=== PATIENT | female | born 1955 | race Caucasian/White ===

== ENCOUNTER 2018-05-01 16:36 | Emergency (ER) | payer MEDICARE, MEDICAID ==
[~2018-05-01] VITALS: Ht 157.5 cm; Wt 68.0 kg
--- NOTE | 2018-05-01 16:58 | Emergency Room Report ---
History of Present Illness General Chief Complaint: Laceration Source: Patient Present Illness HPI 63-year-old female patient presents ER complaining of laceration on left index finger. 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 Bleeding controlled with gauze wrapped at home. Reports has not had a tetanus vaccination. Denies loss of sensation or loss range of motion. Reports she is right-hand dominant. Denies other acute symptoms. Allergies: Coded Allergies: No Known Allergies (Unverified , 05/01/18) Patient History Past Medical History: see triage record Reviewed Nursing Documentation: PMH: Agreed; PSxH: Agreed Nursing Documentation-PMH Past Medical History: No Stated History Review of Systems All Other Systems: negative except mentioned in HPI Physical Exam Vital Signs Date Time Temp Pulse Resp B/P (MAP) Pulse Ox O2 Delivery O2 Flow Rate FiO2 05/01/18 16:42 98.3 94 18 151/79 97 Room Air 98.2 Sp02 EP Interpretation: reviewed, normal General Appearance: well appearing, no apparent distress, alert, GCS 15, non- toxic Head: normocephalic, atraumatic Neck: full range of motion Respiratory: lungs clear, normal breath sounds, no rhonchi, no respiratory distress, no accessory muscle use, no wheezing, speaking full sentences Cardiovascular #1: regular rate, rhythm, no edema Cardiovascular #2: 2+ radial (R), 2+ radial (L) Musculoskeletal: back normal, digits/nails normal, gait/station normal, normal range of motion, other, tender - Left index finger distal phalanx Neurologic: alert, oriented x3, responsive, motor strength/tone normal, sensory intact Psychiatric: mood/affect normal Skin: laceration - Left index finger, palmar side, distal phalanx: U shaped laceration, 1 cm large, bleeding, superficial; small cut distal to laceration Procedures Laceration/Wound Repair Laceration/Wound Repair : Consent: Verbal Wound Location: upper extremity - Left index finger Wound's Depth, Shape: superficial Wound Length (cm): 1 Wound Explored: contaminated Irrigated w/ Saline (ccs): 20 Betadine Prep?: Yes Volume Anesthetic (ccs): 2 Wound Debrided: extensive Wound Repaired With: sutures Suture Size/Type: 5:0, proline Number of Sutures: 2 Sterile Dressing Applied?: Yes Splint Applied?: No Sling Applied?: No Patient Tolerated: Well Complications: None Medical Decision Making PA Attestation Dr. Coughlin is my supervising Physician whom patient management has been discussed with. Diagnostic Impression: Primary Impression: Laceration ER Course Pt presents to ED c/o laceration on left index finger. DDX considered but are not limited to laceration, abrasion, contusion, cellulitis. VITAL SIGNS are WNL, patient is afebrile ED INTERVENTIONS: TDAP and pain medication provided. CURES reviewed. full range of motion, sensation intact to light touch, patient does not require imaging at this time, low suspicion for fracture or tendon involvement. Wound was cleaned and irrigated using normal saline. wound explored, no foreign body noted. Digital block using Lidocaine 1%. Laceration repaired. 2 sutures placed. wound edges approximated well. Wound cleaned and covered using sterile dressing, Xeroform and Bacitracin. Patient reports understanding and agreement to treatment plan. Keep wound clean and dry. DISCHARGE: Rx provided for Keflex Rx provided for Ibuprofen At this time pt is stable for d/c to home. Patient resting comfortably, in no acute distress, nontoxic appearing, talking without difficulty. Will provide with patient care instructions and any necessary prescriptions. Patient to take medication as instructed. Care plan and follow-up instructions provided. Work note provided to patient. Patient questions asked and answered. Patient instructed to follow-up with primary care provider in 1-3 days for wound check and 7-10 days for removal of sutures ER precautions given. Patient instructed to return to ER immediately for any new or worsening of symptoms. - Please note that this Emergency Department Report was dictated using [email or web address] technology software, occasionally this can lead to erroneous entry secondary to interpretation by the dictation equipment. Last Vital Signs Date Time Temp Pulse Resp B/P (MAP) Pulse Ox O2 Delivery O2 Flow Rate FiO2 05/01/18 16:42 98.3 94 18 151/79 97 Room Air 98.2 Disposition: HOME, SELF-CARE Condition: Stable Scripts Acetaminophen* (TYLENOL EXTRA STRENGTH*) 500 Mg Tablet 500 MG ORAL Q8H PRN for Prn Headache/Temp > 101, #30 TAB 0 Refills Prov: Rachid Browne.Lilia 05/01/18 Cephalexin* (KEFLEX*) 500 Mg Capsule 500 MG ORAL EVERY 12 HOURS, #14 CAP 0 Refills Prov: Rachid Browne 05/01/18 Patient Instructions: Laceration Care, Adult Additional Instructions: Patient instructed to follow-up with primary care provider in 1-3 days for wound check and 7-10 days for removal of sutures. Take medications as directed. Keep wound clean and dry. Patient questions asked and answered. ER precautions given, patient instructed to return to ER immediately for any new or worsening of symptoms. Rachid Browne May 01, 2018 16:58
[2018-05-01] MEDS ORDERED: Lidocaine 1% MPF 10mg/ml 5ml IM ONE (17:00)
[2018-05-01] MEDS ORDERED: Norco 5mg/325mg tab ORAL ONE (17:00)
[2018-05-01] MEDS ORDERED: Tetanus/Diptheria/Pertussis Vaccine 0.5ml Syr IM ONE (17:00)
[2018-05-01 17:15] VITALS: BP 151/79
[2018-05-01] MEDS ORDERED: TYLENOL EXTRA500 MG ORAL (18:38)
[2018-05-01] MEDS ORDERED: CEPHALEXIN500 MG ORAL (18:38)
[2018-05-01 18:40] VITALS: BP 143/82
[2018-05-01] MEDS ORDERED: Bacitracin Oint UD TOPIC ONE (18:45)
== END 2018-05-01 18:42 | disposition home or self-care (01) ==
LOC: EMR 18:27
DX: S61.211A Laceration without foreign body of left index finger without damage to nail, initial encounter (principal); W29.8XXA Contact with other powered hand tools and household machinery, initial encounter; Y92.009 Unspecified place in unspecified non-institutional (private) residence as the place of occurrence of the external cause; Z23 Encounter for immunization
CPT/HCPCS: 90471; 90715; 96372; 99282

== ENCOUNTER 2018-06-08 23:26 | Emergency (ER) | payer MEDICARE, MEDICAID ==
[~2018-06-08] VITALS: Ht 157.5 cm; Wt 68.0 kg
[~2018-06-08 23:26] MED LIST: CEPHALEXIN500 MG ORAL; TYLENOL EXTRA500 MG ORAL
[2018-06-08] MEDS ORDERED: NKM (23:36)
[2018-06-08 23:45] VITALS: BP 105/56
[2018-06-08] MEDS ORDERED: Norco 5mg/325mg tab ONE (23:53)
[2018-06-09] MEDS ORDERED: Norco 5mg/325mg tab ORAL ONE
--- NOTE | 2018-06-09 00:07 | Emergency Room Report ---
History of Present Illness General Chief Complaint: Upper Extremity Injury Source: Patient Present Illness HPI Is a 63-year-old female who is right-hand dominant. 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 She slipped and fell on outstretched hand. She presents with chief complaint of right wrist pain. No other injury. Did not pass out. Pain is 9 out of 10. Worse with movement. Localized to the distal radius. No elbow pain. No shoulder pain. Worse with movement. Better with rest. Allergies: Coded Allergies: No Known Allergies (Unverified , 05/01/18) Patient History Past Medical History: see triage record, old chart reviewed, asthma Past Surgical History: other Pertinent Family History: none Social History: Denies: smoking Now: No Immunizations: other Reviewed Nursing Documentation: PMH: Agreed; PSxH: Agreed Nursing Documentation-PMH Past Medical History: No History, Except For Hx Asthma: Yes Review of Systems Eye: Denies: eye pain, blurred vision ENT: Denies: ear pain, nose congestion, throat swelling Respiratory: Denies: cough, shortness of breath Cardiovascular: Denies: chest pain, palpitations Gastrointestinal: Denies: abdominal pain, diarrhea, nausea, vomiting Musculoskeletal: Reports: joint pain; Denies: back pain Skin: Denies: rash Neurological: Denies: headache, numbness Endocrine: Denies: increased thirst, increased urine Hematologic/Lymphatic: Denies: easy bruising All Other Systems: negative except mentioned in HPI Physical Exam Vital Signs Date Time Temp Pulse Resp B/P (MAP) Pulse Ox O2 Delivery O2 Flow Rate FiO2 06/08/18 23:33 97.7 81 18 85/60 96 Room Air 97.7 vitals for low blood pressure. Repeat BP normal w/o intervention Sp02 EP Interpretation: reviewed, normal General Appearance: well appearing, no apparent distress, alert Head: normocephalic, atraumatic Eyes: bilateral eye PERRL, bilateral eye EOMI ENT: hearing grossly normal, normal pharynx Neck: full range of motion, supple, no meningismus Respiratory: chest non-tender, lungs clear, normal breath sounds Cardiovascular #1: regular rate, rhythm, no murmur Gastrointestinal: normal bowel sounds, non tender, no mass, no organomegaly, no bruit, non-distended Musculoskeletal: back normal, gait/station normal, tender - Mild deformity and tenderness to the distal right radius. Sensation normal. Pulses normal. Decreased range of motion secondary to pain. I removed the ring. Neurologic: alert, oriented x3 Psychiatric: mood/affect normal Skin: warm/dry Procedures Splinting Splinting : Consent: Verbal Location: right wrist Hand-Made Type: plaster Splint: sugar-tong Pre-Proc Neuro Vasc Exam: normal Post-Proc Neuro Vasc Exam: normal Patient Tolerated: Well Complications: None Medical Decision Making Diagnostic Impression: Primary Impression: Distal radius fracture, right Qualified Codes: S52.571A - Other intraarticular fracture of lower end of right radius, initial encounter for closed fracture ER Course Patient presents with a right distal radius intra-articular fracture with mild displacement. I offered [place] but she refused because she had alcohol tonight. She has an orthopedic doctor. I gave her copy of her x-rays. Patient splinted and will be discharged home. She is here with her family members. Other X-Ray Diagnostic Results Other X-Ray Diagnostic Results : X-Ray ordered: right wrist x-rays # of Views/Limited Vs Complete: 3 View Indication: Pain EP Interpretation: Yes Interpretation: no dislocation, no soft tissue swelling, other - distal intra-articular fracture of radius Impression: Other - distal radius frx Electronically Signed by: Miguel Ángel Keith MD Last Vital Signs Date Time Temp Pulse Resp B/P (MAP) Pulse Ox O2 Delivery O2 Flow Rate FiO2 06/08/18 23:45 97.7 18 105/56 96 Room Air 97.7 06/08/18 23:33 81 Status: improved Disposition: HOME, SELF-CARE Condition: Stable Scripts Acetaminophen With Codeine (T#3) (TYLENOL #3 TAB*) Y Tab 1 TAB ORAL Q8H PRN for For Pain, #20 TAB Prov: MIGUEL ÁNGEL KEITH M.D. 06/09/18 Ibuprofen* (MOTRIN*) 600 Mg Tablet 600 MG ORAL THREE TIMES A DAY, #30 TAB 0 Refills Prov: MIGUEL ÁNGEL KEITH M.D. 06/09/18 Referrals: NON PHYSICIAN (PCP) Additional Instructions: Follow-up with your for referral to see orthopedic doctor. It is within a week. Return if symptom worsen. Ice pack to the area. Bring the x-rays with you. MIGUEL ÁNGEL KEITH M.D. Jun 09, 2018 00:07
[2018-06-09] MEDS ORDERED: ACETAMINOPHEN-1 EAC1 ORAL (00:15)
[2018-06-09] MEDS ORDERED: IBUPROFEN600 MG ORAL (00:15)
[2018-06-09 00:44] VITALS: BP 105/56
--- NOTE | 2018-06-09 15:02 | Diagnostic Imaging Report ---
Indication: Trauma Technique: XRAY Wrist Complete R Comparison: None Findings: Bones are demineralized. There is an acute, comminuted, minimally displaced intra-articular fracture of the distal radius. There is slight fragmentation of the ulnar styloid possibly related to additional areas of mild fracture. There is overlying soft tissue swelling. There is degenerative change involving multiple carpal articulations with joint space narrowing and productive change. Significant degenerative change noted at the basal joint. No radiopaque foreign body identified. Impression: Acute distal radial fracture as above. This corresponds with the preliminary interpretation of the treating ER clinician, as documented in the electronic medical record.
== END 2018-06-09 00:45 | disposition home or self-care (01) ==
LOC: EMR 23:51
DX: S52.571A Other intraarticular fracture of lower end of right radius, initial encounter for closed fracture (principal); W01.0XXA Fall on same level from slipping, tripping and stumbling without subsequent striking against object, initial encounter; Y93.41 Activity, dancing; Y92.89 Other specified places as the place of occurrence of the external cause; J45.909 Unspecified asthma, uncomplicated
CPT/HCPCS: 99283

== ENCOUNTER 2018-06-12 10:22 | Day surgery (SDC) | payer MEDICARE, MEDICAID ==
[~2018-06-12] VITALS: Ht 157.5 cm; Wt 68.0 kg
[2018-06-12] VITALS (8 sets, daily range): BP systolic 112–136; BP diastolic 59–77
--- NOTE | 2018-06-12 07:13 | Pre-Procedure Note/Attestation ---
Pre-Procedure Note/Attestation Complete Prior to Procedure Planned Procedure: right Procedure Narrative: wrist orif Indications for Procedure Pre-Operative Diagnosis: right wrist fracture Attestation I attest that I discussed the nature of the procedure; its benefits; risks and complications; and alternatives (and the risks and benefits of such alternatives ), prior to the procedure, with the patient (or the patient's legal inside outside sales representative). I attest that, if there was a reasonable possibility of needing a blood transfusion, the patient (or the patient's legal inside outside sales representative) was given the [facility] standardized written summary, pursuant to the Har[place] Blood Safety Act ([place] Health and Safety Code # 1645, as amended). I attest that I re-evaluated the patient just prior to the surgery and that there has been no change in the patient's H&P, except as documented below: Chad Shelton MD Jun 12, 2018 07:13
--- NOTE | 2018-06-12 07:13 | Operative Note - PDOC ---
Operative Note Operative Note Pre-op Diagnosis: right wrist fracture Procedure: se op report Post-op Diagnosis: same as pre-op plus Anesthesia: regional Specimen: none Complications: none Condition: stable Estimated Blood Loss: none Implant(s) used?: Yes Chad Shelton MD Jun 12, 2018 07:13
[~2018-06-12 10:22] MED LIST changes: +ACETAMINOPHEN-1 EAC1 ORAL; +D5 1/2NS 1,000 ML IV SCH; +HYDROmorphone 1mg/ml Carpuject SUBQ PRN; +IBUPROFEN600 MG ORAL; +NKM; +Norco 5mg/325mg tab ORAL PRN; +Tylenol #3 tab (300mg/30mg) ORAL PRN; +ceFAZolin 1gm in D5W 55ml IVPB ONE; +celeBREX 200mg Cap **SURGERY PATIENTS ONLY ORAL ONE; +oxyCONTIN 20mg tab ORAL ONE
[2018-06-12] MEDS ORDERED: DEXILANT30 MG ORAL (10:59)
[2018-06-12] MEDS ORDERED: BYSTOLIC 10MG10 MG PO (10:59)
[2018-06-12] MEDS ORDERED: SERTRALINE HCL100 MG PO (10:59)
[2018-06-12] MEDS ORDERED: oxyCONTIN 20mg tab ORAL ONE (11:02)
[2018-06-12] MEDS ORDERED: celeBREX 200mg Cap **SURGERY PATIENTS ONLY ORAL ONE (11:02)
[2018-06-12] MEDS ORDERED: Ropivacaine 5mg/ml Vial 30ml INJ ONE (14:40)
[2018-06-12] MEDS ORDERED: Bupivacaine 0.25% Inj 30ml INJ ONE (14:40)
[2018-06-12] MEDS ORDERED: NeoSporin Gu Irrig 1ml Amp IRRIG ONE (14:41)
[2018-06-12] MEDS ORDERED: Bacitracin 50000 Units Vial ONE (14:41)
[2018-06-12] MEDS ORDERED: Midazolam 2mg/2ml Inj ONE (14:44)
[2018-06-12] MEDS ORDERED: Lidocaine 1% MPF 10mg/ml 5ml ONE (14:44)
[2018-06-12] MEDS ORDERED: Propofol 200mg/20ml IV ONE (14:44)
[2018-06-12] MEDS ORDERED: fentaNYL 100 mcg/2 mL IV ONE (14:51)
--- NOTE | 2018-06-12 14:56 | Anethesia Preoperative Eval ---
Anesthesia Pre-op PMH/ROS General Date of Evaluation: Jun 12, 2018 Time of Evaluation: 14:30 Anesthesiologist: ASA Score: ASA 2 Mallampati Score Class I : Soft palate, uvula, fauces, pillars visible Class II: Soft palate, uvula, fauces visible Class III: Soft palate, base of uvula visible Class IV: Only hard plate visible Mallampati Classification: Class II Surgeon: kieran Diagnosis: right wrist fracture Surgical Procedure: orif right wrist fracture Anesthesia History: none Allergies: Coded Allergies: No Known Allergies (Unverified , 06/12/18) Past Medical History Cardiovascular: Denies: HTN, CAD, VT, valve dz, arrhythmia, other Pulmonary: Reports: asthma; Denies: COPD, QUIANA, other Gastrointestinal/Genitourinary: Denies: GERD, CRI, ESRD, other Neurologic/Psychiatric: Denies: dementia, CVA, depression/anxiety, TIA, other Endocrine: Denies: DM, hypothyroidism, steroids, other HEENT: Denies: cataract (L), cataract (R), glaucoma, HYDABURG (L), HYDABURG (R), other Hematology/Immune: Denies: anemia, DVT, bleeding disorder, other Musculoskeletal/Integumentary: Denies: OA, RA, DJD, DDD, edema, other Anesthesia Pre-op Phys. Exam Physician Exam Last Vital Signs Date Time Temp Pulse Resp B/P (MAP) Pulse Ox O2 Delivery O2 Flow Rate FiO2 06/12/18 11:21 Room Air 06/12/18 10:49 98.2 73 18 136/77 (96) 96 98.2 Constitutional: NAD Cardiovascular: RRR Respiratory: CTA Gastrointestinal: S/NT/ND Airway Exam Mallampati Score: Class II MO: full ROM: full Teeth: intact Dentures: no upper, no lower Anesthesia Pre-op A/P Risk Assessment & Plan Assessment: asa 2 Plan: GA, righr axillary nerve block Status Change Before Surgery: No Pre-Antibiotics Drug: ancef 1 gram Given Within 1 Hr of Incision: Yes Time Given: 15:00 Ronel Alamo M.D. Jun 12, 2018 14:56
[2018-06-12] MEDS ORDERED: LR 1000ml ONE (15:00)
[2018-06-12] MEDS ORDERED: NS Irrig 1000ml ONE (15:00)
[2018-06-12] MEDS ORDERED: Sterile Water Irrig 1000ml IRRIG ONE (15:00)
[2018-06-12] MEDS ORDERED: LR 1000ml 1,000 ML IVLG SCH (15:35)
[2018-06-12] MEDS ORDERED: ePHEDrine 50mg/ml Inj ONE (15:42)
[2018-06-12] MEDS ORDERED: Dexamethasone 4mg/ml vial ONE (15:42)
--- NOTE | 2018-06-12 15:44 | Immediate Post-Op Evaluation ---
Immediate Post-Op Evalulation Immediate Post-Op Evalulation Procedure: orif right wrist Date of Evaluation: Jun 12, 2018 Time of Evaluation: 16:12 IV Fluids: 700ml Blood Products: 0 Estimated Blood Loss: 5ml Urinary Output: 0 Blood Pressure Systolic: 118 Blood Pressure Diastolic: 63 Pulse Rate: 87 Respiratory Rate: 22 O2 Sat by Pulse Oximetry: 100 Temperature (Fahrenheit): 97.4 Pain Score (1-10): 0 Nausea: No Vomiting: No Complications none Patient Status: awake, patent, none Hydration Status: adequate Drug: ancef 1 gram Given Within 1 Hr of Incision: Yes Time Given: 15:00 Ronel Alamo M.D. Jun 12, 2018 15:44
[2018-06-12] MEDS ORDERED: fentaNYL 100 mcg/2 mL IV PRN (15:45)
[2018-06-12] MEDS ORDERED: Hydromorphone 0.5mg/0.5ml inj IVP PRN (15:45)
[2018-06-12] MEDS ORDERED: DiphenhydrAMINE 50mg/ml Inj IVP PRN (15:45)
[2018-06-12] MEDS ORDERED: Midazolam 2mg/2ml Inj IVP PRN (15:45)
--- NOTE | 2018-06-12 17:12 | Diagnostic Imaging Report ---
Indication: Wrist pain, intraoperative Technique: Intraoperative images Comparison: 06/08/2018 Findings: Intraoperative images demonstrate surgical repair of previously demonstrated distal radial fracture using plate and screws. Impression: Intraoperative imaging, as described
--- NOTE | 2018-06-12 23:00 | Operative Note - Dictated ---
DATE OF OPERATION: 06/12/2018 NOTE: "POOR AUDIO QUALITY" PREOPERATIVE DIAGNOSIS: Right distal radius comminuted fracture. POSTOPERATIVE DIAGNOSIS: Right distal radius comminuted fracture. PROCEDURE: 1. Open reduction and internal fixation, right distal radius fracture, intraarticular, 3 fragments. 2. Application of posterior splint. SURGEON: Chad Shelton M.D. ANESTHESIA: Axillary with general. INDICATION FOR PROCEDURE: The patient is a pleasant 63-year-old female, who sustained a mechanical fall and was diagnosed with a displaced intra-articular fracture. She was indicated for operative fixation. Risks, limitations, expectations, and complications of procedure were discussed in detail. All questions were addressed. DESCRIPTION OF PROCEDURE: After informed consent was obtained, the patient was brought to the operating room. We placed the patient under general anesthesia with extremity block. Tourniquet was applied on the right proximal arm. The right arm was prepped and draped in a sterile manner. Time-out was performed. The Esmarch was used to exsanguinate the extremity. Anterior volar approach to the distal wrist was performed. A long narrow innovation plate was selected. K-wire was placed proximally and distally. Once adequate position was confirmed with fluoroscopic imaging. Multiple screws were placed proximally and distally. Overall reduction and hardware placement was anatomic. Therefore, the wound was copiously irrigated. The skin was approximated using 2-0 Vicryl suture, 3-0 Monocryl suture. A posterior splint was applied. The patient was awoken and taken to recovery room with stable vital signs. Chad Shelton M.D. DR: [place] JOB#: [id number] CC:
== END 2018-06-12 18:00 | disposition home or self-care (01) ==
LOC: SUR 10:22
DX: S52.501A Unspecified fracture of the lower end of right radius, initial encounter for closed fracture (principal); K21.9 Gastro-esophageal reflux disease without esophagitis; E78.5 Hyperlipidemia, unspecified; M79.7 Fibromyalgia; M17.11 Unilateral primary osteoarthritis, right knee; X58.XXXA Exposure to other specified factors, initial encounter; Y93.9 Activity, unspecified; Y92.9 Unspecified place or not applicable
CPT/HCPCS: 25609; 73100; 76001; C1713; J0690; J1100; J2250; J2405; J2704; J2795; J3490; J7120; 94003; 94150